=== PATIENT | male | born 1980 | race Caucasian/White ===

== ENCOUNTER 2016-07-13 14:33 | Emergency (ER) | payer SELFPAY ==
--- NOTE | 2016-08-03 08:03 | ER ---
ADMIT: 07/13/2016 RM/LOC: ER [facility] MR#: [id number] [address] [id number] [address] [facility] [address] Emergency Room Report SEX: M AGE: 35 : 1980 DATE: 07/13/2016 ADDENDUM: CHIEF COMPLAINT: Cough and sore throat. HISTORY OF PRESENT ILLNESS: This is a 35-year-old who had a cough for the last week. He said it has been so bad that he has not been able to smoke. CLINICAL IMPRESSION: Bronchitis. DISPOSITION: Sent him home with albuterol and prednisone. His exam is essentially negative. He has a slightly erythemic throat but his lungs are clear. Does have some postpharyngeal nasal drip. DISPOSITION: Stable at discharge. Will follow up if symptoms do not improve in the next week or two. NATE Bauman / Shiva Cramer MD / rodriguezl JOB #: [id number] CC: Shiva Cramer MD, Attending Physician
== END 2016-07-13 15:20 | disposition home or self-care (01) ==
LOC: ER 14:33
DX: J40 Bronchitis, not specified as acute or chronic (principal); F17.210 Nicotine dependence, cigarettes, uncomplicated; Z98.890 Other specified postprocedural states; Z79.899 Other long term (current) drug therapy

== ENCOUNTER 2016-08-07 08:26 | Emergency (ER) | payer SELFPAY ==
--- NOTE | 2016-09-06 17:09 | ER ---
ADMIT: 08/07/2016 RM/LOC: ER [facility] MR#: [id number] [address] [id number] [address] BRADSHAW [address] [facility] [place] [address] Emergency Room Report SEX: M AGE: 35 : 1980 DATE: 08/07/2016 ADDENDUM: CHIEF COMPLAINT: Cough and sore throat. HISTORY OF PRESENT ILLNESS: This is a 35-year-old male, who has had a cough for about 3 days. He has a horrible sore throat. He said he has tried multiple [id number] remedies, but it is not improving. He missed work yesterday and missed work today, just is not feeling good. I sent him home with prednisone and albuterol. I told him to try that first for the first five days. I told him it is probably more viral at this point, but I did send him home with amoxicillin to start in one week if he does not have any improvement. CLINICAL IMPRESSION: Bronchitis. DISPOSITION: Told him to push fluids. Again, do the albuterol and prednisone, and start the amoxicillin in a week if no improvement. NATE Bauman / Shiva Cramer MD / rodriguezl JOB #: [id number] CC: Shiva Cramer MD, Attending Physician Curt Pulliam MD, Family Physician
== END 2016-08-07 09:32 | disposition home or self-care (01) ==
LOC: ER 08:26
DX: J40 Bronchitis, not specified as acute or chronic (principal); F32.9 Major depressive disorder, single episode, unspecified; F41.9 Anxiety disorder, unspecified; Z87.891 Personal history of nicotine dependence